=== PATIENT | male | born 1980 | race Caucasian/White ===

== ENCOUNTER → 2023-12-11 | Outpatient (CLI) | payer SELFPAY ==
--- NOTE | 2023-12-11 13:03 | RAD_ITS ---
INDICATION: JAW WOUND EXAMINATION/TECHNIQUE: X-RAY - XR Mandible Complete Min 4 Views COMPARISON: No relevant prior comparison study available FINDINGS: SOFT TISSUES: No soft tissue swelling or gas. Craniocervical fusion with multiple screws. BONES/TMJs: No fracture or subluxation. No sclerotic or destructive changes observed. DENTITION: No acute abnormality. RAD/Mandible Min 4 Views IMPRESSION: 1. No demonstrated acute changes. 2. If symptoms persist, CT scan of the face might be of value. Electronically Signed: Jim Coleman MD at 14:26 EST ,
[2023-12-11 13:31] LABS: Absolute Lymphocyte Count 1.74 X10^3/uL (0.83-4.51); Basophil# 0.06 X10^3/uL; Basophil% 0.9 % (0-1); Eosinophil# 0.08 X10^3/uL; Eosinophils% 1.2 % (0-5); Hematocrit 42.6 % (40-54); Hemoglobin 14.3 g/dL (13.0-16.5); Lymphocyte # 1.74 X10^3/ul (0.83-4.51); Lymphocyte % 26.9 % (19-41); Mean Corp Hgb Conc 33.6 g/dL (32-36); Mean Corpuscular Hgb 30.5 pg (27.0-32.0); Mean Corpuscular Volume 90.8 fL (80-94); Mean Platelet Vol. 9.6 fl (6.2-12.0); Monocyte# 0.58 X10^3/uL; NRBC Flagged by Analyzer 0 % (0-5); Neutrophil # 3.98 X10^3/uL (2.7-7.7); Neutrophil % 61.7 % (47-70); Platelet Count 373 K/mm3 (150-450); RBC Distribution Width CV 12.1 % (11.6-14.6); Red Blood Count 4.69 M/mm3 (4.6-6.2); White Blood Count 6.5 K/mm3 (4.4-11.0)
[2023-12-11 14:46] LABS: HIV - WCH Non-Reactive (Nonreactive); Hepatitis C Antibody Non-Reactive (Nonreactive); Vitamin B12 358 pg/mL (211-911)
[2023-12-11 14:56] LABS: ALB/GLOB Ratio 1.3 RATIO (0.9-2.4); AST(SGOT) 15 U/L (15-37); Alanine Aminotransfer ALT/SGPT 20 U/L (16-61); Albumin, Serum 4.2 g/dL (3.2-5.0); Alkaline Phosphatase 58 U/L (45-117); Anion Gap 8 (5-15); BUN 9 mg/dL (7-18); BUN/Creat Ratio 11.4 RATIO (10-20); Calcium,Total 9.3 mg/dL (8.5-10.1); Chloride 107 mmol/L (98-107); Cholesterol 208 mg/dL (200); Creatinine, Serum 0.79 mg/dL (0.70-1.30); EST Glomerular Filtration Rate 113 mL/min (>60); Est Glom Filt Rate - Afr Amer 137 mL/min (>60); Globulin 3.3 g/dL (2.2-4.2); Glucose 88 mg/dL (74-106); High Density Lipoprotein 58 mg/dL; Potassium 3.5 mmol/L (3.5-5.1); Protein, Total 7.5 g/dL (6.4-8.2); Sodium Level 139 mmol/L (136-145); Thyroid Stim Hormone (TSH) 1.01 uIU/mL (0.358-3.74); Triglycerides 112 mg/dL; Very Low Density Lipoprotein 22 mg/dL (5-40)
[2023-12-12 10:35] LABS: Hemoglobin A1c 5.2 % (3.8-5.6)
== END | disposition home or self-care (01) ==
DX: S01.80XA Unspecified open wound of other part of head, initial encounter (principal); F10.20 Alcohol dependence, uncomplicated; X58.XXXA Exposure to other specified factors, initial encounter; Z11.4 Encounter for screening for human immunodeficiency virus [HIV]; Z11.59 Encounter for screening for other viral diseases; Z13.1 Encounter for screening for diabetes mellitus; Z13.220 Encounter for screening for lipoid disorders; F41.9 Anxiety disorder, unspecified; Z76.89 Persons encountering health services in other specified circumstances
CPT/HCPCS: 36415; 70110; 80053; 80061; 82607; 83036; 84443; 85025; 86703; 86803